=== PATIENT | male | born 1945 | race Caucasian/White ===

== ENCOUNTER 2020-05-21 12:31 | Emergency (ER) | payer OTHER, MEDICARE ==
[~2020-05-21] VITALS: Ht 177.8 cm; Wt 77.3 kg
[2020-05-21] MEDS ORDERED: normal saline 1000ML IV soln IV ONE (14:00)
[2020-05-21 14:57] LABS: BASOPHILS # (AUTO) 0.1 X10'3 (0-0.2); BASOPHILS % (AUTO) 1.3 % (0-1); EOSINOPHILS # (AUTO) 0.1 X10'3 (0-0.9); EOSINOPHILS % (AUTO) 1.1 % (0-6); HEMATOCRIT 31.4 % (42.0-52.0); HEMOGLOBIN 10.5 g/dl (14.0-17.9); LYMPHOCYTES # (AUTO) 4.1 X10'3 (1.1-4.8); LYMPHOCYTES % (AUTO) 46.5 % (21-51); MEAN CORPUSCULAR HEMOGLOBIN 33.8 PG (27.0-31.0); MEAN CORPUSCULAR HGB CONC 33.6 g/dL (33.0-36.5); MEAN CORPUSCULAR VOLUME 100.7 FL (78-98); MEAN PLATELET VOLUME 8.5 FL (7.4-10.4); MONOCYTES # (AUTO) 0.7 X10'3 (0-0.9); MONOCYTES % (AUTO) 7.8 % (2-12); NEUTROPHILS # (AUTO) 3.8 X10'3 (1.8-7.7); NEUTROPHILS % (AUTO) 43.3 % (42-75); PLATELET COUNT 455 X10'3 (140-440); RED BLOOD COUNT 3.12 X10'6 (4.70-6.10); RED CELL DISTRIBUTION WIDTH 15.7 % (11.5-14.5); WHITE BLOOD COUNT 8.7 X10'3 (4.5-11.0)
[2020-05-21 15:02] LABS: ALANINE AMINOTRANSFERASE 27 U/L (12-78); ALBUMIN 2.6 G/DL (3.4-5.0); ALBUMIN/GLOBULIN RATIO 0.6 (1.1-1.5); ALKALINE PHOSPHATASE 105 IU/L (46-116); ANION GAP 5 (8-16); ASPARTATE AMINO TRANSFERASE 20 U/L (10-37); BILIRUBIN,TOTAL 0.3 MG/DL (0.1-1.0); BLOOD UREA NITROGEN 9 MG/DL (7-18); BUN/CREATININE RATIO 7.3 (5.4-32.0); CALCIUM 8.2 MG/DL (8.5-10.1); CHLORIDE 109 MMOL/L (99-107); CREATININE 1.23 MG/DL (0.60-1.10); GLUCOSE 88 MG/DL (70-104); SODIUM 141 MMOL/L (135-145); TOTAL CARBON DIOXIDE 27.3 MMOL/L (24-32); TOTAL PROTEIN 6.7 G/DL (6.4-8.2); eGFR 58 ML/MIN
[2020-05-21] MEDS ORDERED: potassium Cl 20 mEq SR tablet PO STA (15:14)
[2020-05-21] MEDS ORDERED: potassium Cl 10 mEq/100mL bag IV ONE (15:15)
[2020-05-21 16:19] VITALS: BP 152/88
[2020-05-21 16:22] LABS: CLARITY,URINE TURBID (Clear); COLOR,URINE BROWN (Yellow); UA COLLECTION TYPE FOLEY CATH
[2020-05-21 16:33] LABS: RBC,URINE TNTC /HPF (0-2)
[2020-05-21 16:35] LABS: SQUAMOUS EPITHELIAL CELL,UR MODERATE /LPF (FEW)
[2020-05-21 16:38] LABS: TRANSITIONAL EPI CELLS,URINE FEW /HPF
[2020-05-21 16:39] LABS: AMORPHOUS URATES 3+; BACTERIA,URINE 1+ /HPF (Neg)
[2020-05-21] MEDS ORDERED: ONDA4TAB6 PO (16:44)
[2020-05-21] MEDS ORDERED: CIPR250S2 PO (16:44)
--- NOTE | 2020-05-21 18:42 | NUR ---
ASSISTING RN WITH PT DC, EMPTIED RITCHIE 800ML OF LIGHT RED BLOOD, ATTACHED LEG BAG
== END 2020-05-21 18:43 | disposition home or self-care (01) ==
LOC: ER 12:32
DX: K52.9 Noninfective gastroenteritis and colitis, unspecified (principal); N39.0 Urinary tract infection, site not specified; E87.6 Hypokalemia; F03.90 Unspecified dementia, unspecified severity, without behavioral disturbance, psychotic disturbance, mood disturbance, and anxiety; Z90.49 Acquired absence of other specified parts of digestive tract; Z79.899 Other long term (current) drug therapy
CPT/HCPCS: 36415; 71045; 74176; 80053; 81001; 82948; 83605; 84145; 85025; 87040; 87088; 93005; 96361; 96365; 96366; 99285; J3480; J7030